=== PATIENT | female | born 1985 | race Caucasian/White ===

== ENCOUNTER 2017-01-02 11:01 | Observation (INO) | payer MEDICAID ==
[~2017-01-02] VITALS: Ht 160 cm; Wt 67.0 kg
--- NOTE | ~2017-01-02 | ER ---
PATIENT'S NAME: DENEEN ANGULO [facility] AGE: 31 Y [address] ROOM: [place] [address] LOCATION: [facility] ADMIT DATE: 01/02/2017 ER/Outpatient Report DISCHARGE DATE: FAMILY PHYSICIAN: PHYSICIAN, UNKNOWN ATTENDING PHYSICIAN: Margarette Mcknight CHIEF COMPLAINT: Illness. HISTORY OF PRESENT ILLNESS: The patient arrives by ambulance. She states that she is approximately 30 weeks' and she is homeless. She has been wandering around [place] for the last several days and has not been sleeping well or with significant penitentiary. She only recently got on food stamps. She states that she has been spotting every day for the last few weeks. She has not been seen by a provider for since she was in group home in the middle of September. At that time, she stated that everything looked well with her . She states that she still does feel baby move, but not that much. She states that the reason she called the ambulance today is that she was so tired, she just could not walk anymore and her legs were tingly. She denies any other acute issues at this time. She denies any drug use, but states that she is exposed to significant amounts of drugs at the location where she spends most of her time. PAST MEDICAL HISTORY: Documented on the record and reviewed by me. SOCIAL HISTORY: Documented on the record and reviewed by me. MEDICATIONS: Documented on the record and reviewed by me. ALLERGIES: DOCUMENTED ON THE RECORD AND REVIEWED BY ME. REVIEW OF SYSTEMS: All systems were reviewed and negative except as noted in the HPI. PHYSICAL EXAMINATION: VITAL SIGNS: Blood pressure 113/75, pulse 93, respiratory rate 16, temperature 98, SpO2 is 98% on room air. Pain is 0/10. GENERAL: Age-appropriate female, disinterested in lying on the exam table, no apparent pain or distress. NEUROLOGIC: Awake and alert. GCS is 15. No focal deficits. No asymmetry. PATIENT'S NAME: DENEEN ANGULO [facility] AGE: 31 Y [address] ROOM: [place] [address] LOCATION: [facility] ADMIT DATE: 01/02/2017 ER/Outpatient Report DISCHARGE DATE: FAMILY PHYSICIAN: PHYSICIAN, UNKNOWN ATTENDING PHYSICIAN: Margarette Mcknight The patient was able to rise to a standing position from a recumbent position rapidly with no apparent difficulties. She is able to ambulate without difficulty. She had no focal or sensory deficits. No focal weakness appreciable on exam. No facial asymmetry. HEENT: Normocephalic, atraumatic. Eyes are tired, minimally sunken. Oropharynx is clear and moist. No exudates appreciated. NECK: Supple. Trachea is midline. CHEST: Heart is regular rate and rhythm. No murmurs. LUNGS: Clear to auscultation bilateral. ABDOMEN: Gravid, nontender. No rebound or guarding. BACK: Normal to inspection. EXTREMITIES: Warm and well perfused. No appreciable edema. SKIN: Appears to be clean, dry, and intact. LABORATORY DATA AND X-RAYS: Deferred. IMPRESSION: Fatigue in the setting of late second to early third trimester . EMERGENCY DEPARTMENT COURSE: The patient was seen and rapidly determined to have no significant emergency medical condition requiring further stabilization in the emergency department. No evidence of stroke or hemodynamic instability. I discussed the case with the OB charge nurse and we have deferred her evaluation to be completed upstairs by the TAPE FASTENER MACHINE OPERATOR team to provide the most appropriate care for her baby. This is the patient's third . Her only child is 5 years old and she had elective at the age of 17 as she reports. MD OSVALDO DESHPANDE/guerrero /[id number] d: 01/03/17 0334 t: 01/12/17 0722, OUTPATIENT REPORT
--- NOTE | ~2017-01-02 | DS ---
PATIENT'S NAME: DENEEN ANGULO [facility] AGE: 31 Y [address] ROOM: [id number] [place], [place] [address] LOCATION: BS ADMIT DATE: 01/02/2017 Discharge Summary DISCHARGE DATE: 01/03/2017 FAMILY PHYSICIAN: Physician, Unknown ATTENDING PHYSICIAN: Margarette Mcknight FINAL DIAGNOSES: 1. Intrauterine at 26 weeks 3 days. 2. No care. 3. Dehydration. 4. Urinary tract infection. 5. Methamphetamine, THC, and opioid use. REASON FOR ADMISSION: This patient is a 31-year-old female, 3, para 1- 0-1-1, who is 26 weeks 2 days by estimated date of confinement, who is homeless and presents with vague symptoms of just overall not feeling well and a one-time episode of vaginal spotting. HOSPITAL COURSE: The patient was admitted. She was given IV hydration. She had been on the streets for a few weeks. She was clearly dehydrated upon arrival. The baby looked good on monitoring based on gestational age. Ultrasound confirmed gestational age close to her due date with a marrero at 1042 g. Full anatomy screen was not performed as it was just a bedside ultrasound. Her urinary drug screen was positive for opioids, methamphetamines, and THC. She denied drug use and was very angry about the positive drug screen. Care Management saw her while they were here. We did give her IV hydration, fed her, watched her overnight, did not notice any bleeding at all, and status was reassuring. She had some bacteria in her urine, but it was not a clean catch, but since she was symptomatic and probably will not follow up well, I am going to send her home with an antibiotic. We found her a room at the retirement, and we strongly recommend that she establishes care, and then she can see us back in the office, and we will do a full anatomy screen and diabetes screening. She did have her limited labs done while she was here. She also needs to see a dentist because she has some bad dentition issues. DISCHARGE MEDICATIONS: Please see her list. DISCHARGE INSTRUCTIONS: Again, the patient is strongly recommended to seek care, see a dentist, and hopefully, we can get her to come to the office so that we can take care of her prior to delivery. Care Management is involved, and CPS has been notified. PATIENT'S NAME: DENEEN ANGULO [facility] AGE: 31 Y [address] ROOM: [place] [address] LOCATION: [facility] ADMIT DATE: 01/02/2017 Discharge Summary DISCHARGE DATE: 01/03/2017 FAMILY PHYSICIAN: Physician, Unknown ATTENDING PHYSICIAN: Margarette Mcknight MD KENAN TOWNSEND/guerrero /[id number] d: 01/04/17 1128 t: 01/08/17 1103, DISCHARGE SUMMARY
[2017-01-02 12:02] LABS: BILIRUBIN URINE NEGATIVE (NEGATIVE); BLOOD URINE NEGATIVE /UL (NEGATIVE); COLOR URINE YELLOW (YELLOW); GLUCOSE URINE NEGATIVE (NEGATIVE); KETONE URINE NEGATIVE (NEGATIVE); LEUKOCYTES URINE 100 /UL (NEGATIVE); NITRITE URINE NEGATIVE (NEGATIVE); PROTEIN URINE 15 mg/dL (NEGATIVE); SPEC GRAVITY URINE 1.025 (1.003-1.035); TURBIDITY URINE 1+ (CLEAR); UROBILINOGEN URINE NORMAL (NORMAL)
[2017-01-02 12:09] LABS: RBC URINE 0-2 #/HPF (NEGATIVE)
[2017-01-02 12:10] LABS: BACTERIA URINE MANY (NEGATIVE); MUCUS URINE 3+ (NEGATIVE)
[2017-01-02] MEDS ORDERED: PRENATAL 1+1)(P1 TAB PO (12:21)
[2017-01-02] MEDS ORDERED: TUMS200 MG PO (12:21)
[2017-01-02 13:30] LABS: AMPHETAMINE POSITIVE (NEGATIVE); BARBITURATE NEGATIVE (NEGATIVE); COCAINE NEGATIVE (NEGATIVE)
[2017-01-02 13:31] LABS: OPIATES POSITIVE (NEGATIVE)
[2017-01-02] MEDS ORDERED: ZANTAC (NON-FO150 MG PO (14:59)
--- NOTE | 2017-01-02 16:43 | NUR ---
Received a consult and a phone call on this patient. She arrived at the hospital for spotting. I arrived on the floor at [address] Ballesteros and charge nurse Nafisa. Patient is homeless and has been living on the streets of [place] for the past two nights for sure. Dr. Ballesteros asked me to assist with resources for her. She is requiring fluids and monitoring of the spotting so will be here overnight. It was also noted that patient had a positive urine drug screen with amphetamines, opiods, and THC. Dr. Mcknight went into the room to speak to patient regarding the plan of care and the positive drug screen. Dr. Ballesteros came out of the room and states patient is very upset and mad, using profanity at her regarding the drug screen. I then went into the room and spent approximately 40mins with patient. She tells me that she had been in correction in [facility] from July to September for drug charges (distribution). She states that since being released from correction she has been homeless, staying a multiple different peoples homes for short periods of time. Most recently she was staying in a house/garage coverted to apartments with the address of [birth year], but that is all she will give for address. She has been there for approximately one month until 2-3 nights ago when she left. She states there were 3 other people living in the home with her and they were all using drugs so this must be why she had a positive drug screen. She states she has not used any drugs since being released from correction in September. She has a 5 year old son Jimi who is currently a state peralta and in foster care in [place]. Jimi's father is Ciro and he is also the father of this baby she is carrying. Patient has not been able to see Jmii since she was in correction because she has refused to put the drug patch on. She states her refusal is because the state wants the person to come to her home and apply the drug patch and patient says she has refused because she does not have a home. She says they state will not allow her to meet at their offices for the drug patch to be applied. 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 She also reports that she has been diagnosed with manic depression, bipolar, and anxiety. She was diagnosed with these when she was at [facility] inpatient treatment facility in [place]. The energy infrastructure engineer ordered for her to have a mental health evaluation and a drug and alcohol evaluation which according to patient has not been done yet. She states that she has talked with the regional manager at [facility] here in [place] and all she needs is a copy of her certificate in order to fill out an application for [email or web address] benefits, which I am not certain she will qualify for. Note left on chart regarding this. She has a long standing history of extensive drug use (heroine, meth, opiods, benzo's). I asked her if she is currently on any medications that could have triggered the positive drug screen. She states that the only way she could have tested positive is because they were using drugs in the home she was staying at until two nights ago. She states only meds she should be on, but she isn't taking is vitamins. I offered to contact [facility] to secure a bed for her there and also to make a referral to [facility] [address] [facility] to see if they can offer any services to her. She signed a release of information for me so I can call [place] [facility] [address] and make a referral. I called them and spoke to Demetrius with the adult assistance program. He states they may be able to offer some supports regarding her mental health needs, but they cannot assist with housing. I did let him know that I have a bed for her at [facility] when she discharges from here tomorrow. He states the patient will been to call the technical training coordinator Marie Jacobs with [facility] [address] at [phone] to inquire about services. I will provide this information to the patient. I spoke to my director Valeria Mendenhall and I will plan on contacting [facility] regarding the positive drug screen tomorrow because I do not want to see her leave here bhumika ELLIS as I am worried about her and the well being of the baby. Will continue to follow and offer supports.
--- NOTE | 2017-01-03 05:38 | NUR ---
Runs low BP, last , [facility], CM consult today and waiting to go to [facility], positive drug screen
[2017-01-03] MEDS ORDERED: MACROBID100 MG PO (10:56)
--- NOTE | 2017-01-03 14:46 | NUR ---
Met with Dr. Mcknight this morning and patient is cleared to discharge today. I called [facility] here in [place] and confirmed they still have a bed for patient which they do. I provided patient with a change of clothes, contact information for Marie Jacobs Fabric Worker with [facility] ([phone]) to contact her for assistance, and a taxi voucher to [place]. CPS call placed at time of discharge. No other discharge needs.
== END 2017-01-03 14:00 | disposition disaster alternative care site (69) ==
LOC: EDBD 11:01 → GMED 11:01 → GOBS 11:25
PROVIDERS: ADMIT Obstetrics & Gynecology
DX: O26.812 Pregnancy related exhaustion and fatigue, second trimester (principal); O23.32 Infections of other parts of urinary tract in pregnancy, second trimester; E86.0 Dehydration; Z3A.26 26 weeks gestation of pregnancy; O99.322 Drug use complicating pregnancy, second trimester; F11.90 Opioid use, unspecified, uncomplicated; Z79.899 Other long term (current) drug therapy; Z91.09 Other allergy status, other than to drugs and biological substances
CPT/HCPCS: G0378; G0463; J2001; J2791; J7120

== ENCOUNTER → 2017-01-02 | Outpatient (CLI) | payer MEDICAID ==
[~2017-01-02] MED LIST: MACROBID100 MG PO; PRENATAL 1+1)(P1 TAB PO; TUMS200 MG PO; ZANTAC (NON-FO150 MG PO
== END | disposition disaster alternative care site (69) ==
LOC: GAMB 10:46
DX: O99.89 Other specified diseases and conditions complicating pregnancy, childbirth and the puerperium (principal); O26.852 Spotting complicating pregnancy, second trimester; O99.322 Drug use complicating pregnancy, second trimester; F13.180 Sedative, hypnotic or anxiolytic abuse with sedative, hypnotic or anxiolytic-induced anxiety disorder; E86.0 Dehydration; R53.1 Weakness
CPT/HCPCS: A0425; A0429

== ENCOUNTER 2017-01-14 12:50 | Emergency (ER) | payer MEDICAID ==
--- NOTE | ~2017-01-14 | ER ---
PATIENT'S NAME: DENEEN ANGULO [facility] AGE: 31 Y [address] ROOM: [place] [address] LOCATION: ED ADMIT DATE: 01/14/2017 ER/Outpatient Report DISCHARGE DATE: 01/14/2017 FAMILY PHYSICIAN: PHYSICIAN, NO ATTENDING PHYSICIAN: Polo Roldan TIME OF ARRIVAL: 1255 hours. TIME OF EXAM: 1257 hours. CHIEF COMPLAINT: Cyst of the left armpit. HISTORY OF PRESENT ILLNESS: The patient states that she has had the sores in her left armpit area for the past week. States she had something similar to this 3 months ago. She was seen [place] [facility] at that time, diagnosed and given antibiotics and which helped to clear them up. She states she has had chills off and on. They are tender to touch. There has been no drainage from them. She has not had any other symptoms. No numbness or tingling of her hand, has good use of her arm, just tender to move her arm. ALLERGIES: SHE HAS NO KNOWN ALLERGIES. CURRENT MEDICATIONS: No current medications. PAST MEDICAL HISTORY: She reports she is 7 months . She has not been receiving any care. She is scheduled to see Dr. Edwar Blanton on January 25. PAST SURGICAL HISTORY: Appendectomy, tendon and nerve repair of the left thumb. SOCIAL HISTORY: She does smoke half pack per day. When asked about drug use, she states that she has not used anything for last 2 weeks. However, two weeks ago, she was positive for methamphetamines and opiates. Denies use of alcohol. States she has recently been in correction. REVIEW OF SYSTEMS: All negative other than those mentioned in the HPI. PATIENT'S NAME: DENEEN ANGULO [facility] AGE: 31 Y [address] ROOM: [place] [address] LOCATION: [facility] ADMIT DATE: 01/14/2017 ER/Outpatient Report DISCHARGE DATE: 01/14/2017 FAMILY PHYSICIAN: PHYSICIAN, JAN ATTENDING PHYSICIAN: Polo Roldan PHYSICAL EXAMINATION: VITAL SIGNS: She weighed 70.3 kg. Blood pressure is 119/76, pulse is 76, respirations 17, temp of 98.4 tympanic, and O2 saturation was 99% on room air. GENERAL: She is awake, alert, and oriented x4. SKIN: [place], warm, and dry. RESPIRATIONS: Even and nonlabored. Lungs sounds are clear throughout. HEART: Regular rate and rhythm. EXTREMITIES: The patient has two cysts under the left armpit area. They are round, reddened, and slightly firm. No drainage noted. No head to the area noted. IMPRESSION: Infected skin lesion. PLAN: Wash the area at least twice a day with soap and water. Tylenol as needed for discomfort. Prescription was written for cephalexin. She is to follow up with primary provider next 2 or 3 days, if symptoms are worse and keep her scheduled appointment on the , she verbalized understanding. LEONARD NOVOA APRN FOR MD NACHO DESHPANDE/guerrero /[id number] d: 01/14/171916 t: 01/29/17 0950, OUTPATIENT REPORT
== END 2017-01-14 13:10 | disposition disaster alternative care site (69) ==
LOC: GMED 12:50
DX: O99.711 Diseases of the skin and subcutaneous tissue complicating pregnancy, first trimester (principal); O99.331 Smoking (tobacco) complicating pregnancy, first trimester; L08.89 Other specified local infections of the skin and subcutaneous tissue; F17.210 Nicotine dependence, cigarettes, uncomplicated; Z3A.01 Less than 8 weeks gestation of pregnancy; Z90.49 Acquired absence of other specified parts of digestive tract; Z98.890 Other specified postprocedural states

== ENCOUNTER 2017-01-26 19:42 | Emergency (ER) | payer MEDICAID ==
--- NOTE | ~2017-01-26 | ER ---
PATIENT'S NAME: DENEEN ANGULO [facility] AGE: 31 Y [address] ROOM: [place] [address] LOCATION: [facility] ADMIT DATE: 01/26/2017 ER/Outpatient Report DISCHARGE DATE: 01/26/2017 FAMILY PHYSICIAN: PHYSICIAN, NO ATTENDING PHYSICIAN: Cleveland Tang Time of Arrival: 1942 hours. Time of Evaluation: 1955 hours. CHIEF COMPLAINT: Infected cyst under left arm. HISTORY OF PRESENT ILLNESS: This is a 31-year-old female, who presents to the ER, who states that she was seen here in the emergency room because she has had some infected cyst under her left armpit. She was treated with cephalexin, and she states she has one more dose of that. She feels like it has been getting better, but she just wanted to get it rechecked. She has had no fever or chills. No other problems as far as nausea, vomiting, or diarrhea. She states the antibiotic has given her yeast infection that she would like for us to give her medication for as well. She denies any other problems at this time. ALLERGIES: NO KNOWN ALLERGIES. MEDICATIONS: vitamins. PAST MEDICAL HISTORY: Negative. PAST SURGICAL HISTORY: Appendectomy, left thumb surgery. EXEC. CREATIVE DIRECTOR HISTORY: She is currently 30 weeks' . SOCIAL HISTORY: She smokes half pack a day for last 15 years. She did methamphetamines on January 01. REVIEW OF SYSTEMS: All systems reviewed and were negative with the exception of those discussed in the HPI. PATIENT'S NAME: DENEEN ANGULO [facility] AGE: 31 Y [address] ROOM: [place] [address] LOCATION: [facility] ADMIT DATE: 01/26/2017 ER/Outpatient Report DISCHARGE DATE: 01/26/2017 FAMILY PHYSICIAN: PHYSICIAN, NO ATTENDING PHYSICIAN: Cleveland Tang PHYSICAL EXAMINATION: VITAL SIGNS: Height 5 feet 3 inches stated, weight 70.3 kg taken, blood pressure is 139/67, pulse 104, respirations 20, temperature 97.4 degrees tympanically, and saturations 96% on room air. Kendy Coma Score is 15. GENERAL: Alert, calm, well-developed, 31-year-old, in no acute distress. LUNGS: Clear to auscultation bilaterally. HEART: Slightly tachycardic. Normal rhythm. EXTREMITIES: No clubbing or cyanosis. She has full range of motion of all limbs. SKIN: She has some slight erythema noted to her left armpit. There is no induration. There are no pustules. There is no active draining. LABORATORY DATA AND X-RAYS: None were done. IMPRESSION: Improved infected skin lesion under left armpit. ASSESSMENT AND PLAN: I advised the patient to finish out her cephalexin. She may use warm compresses to the skin. Advised her to use Monistat for her vaginal yeast infection, and she needs to follow [facility] with [facility] if she does not improve. The patient understands and agrees with care. JENI BYNUM PA-C FOR MD EZEKIEL COLON/guerrero /[id number] P d: 01/26/170 t: 02/06/17 1817, OUTPATIENT REPORT
== END 2017-01-26 20:13 | disposition disaster alternative care site (69) ==
LOC: GMED 19:42
DX: O99.713 Diseases of the skin and subcutaneous tissue complicating pregnancy, third trimester (principal); O99.333 Smoking (tobacco) complicating pregnancy, third trimester; L98.9 Disorder of the skin and subcutaneous tissue, unspecified; F17.200 Nicotine dependence, unspecified, uncomplicated; Z3A.30 30 weeks gestation of pregnancy; Z90.49 Acquired absence of other specified parts of digestive tract; Z98.890 Other specified postprocedural states; Z79.2 Long term (current) use of antibiotics

== ENCOUNTER → 2017-02-13 | Outpatient (CLI) | payer MEDICAID ==
[2017-02-13 16:24] LABS: BASOPHIL # 0.1 K/uL (0.0-0.2); BASOPHIL % 0.4 %; EOSINOPHIL # 0.3 K/uL (0.0-0.5); EOSINOPHIL % 2.1 %; HEMATOCRIT 36.4 % (33.0-46.0); HEMOGLOBIN 12.3 g/dL (11.0-15.0); IMMATURE GRANULOCYTE # 0.1 K/uL (0.0-0.3); IMMATURE GRANULOCYTE % 0.7 %; LYMPHOCYTE # 2.1 K/uL (0.8-4.0); MCH 33.7 pg (27.0-34.0); MCHC 33.8 gm/dL (32.0-36.5); MCV 99.7 fl (83.0-98.0); MONOCYTE # 0.7 K/uL (0.0-1.0); MONOCYTE % 4.5 %; MPV 9.8 fl (9.4-12.4); NEUTROPHIL # (ANC) 12.6 K/uL (1.8-7.8); NEUTROPHIL % 79.3 %; NRBC % 0 /100WBC (0-0.00); PLATELET COUNT 278 K/uL (150-450); RBC 3.65 M/uL (3.50-5.00); RDW-CV 13.5 % (11.9-14.6); WBC 15.9 K/uL (4.0-11.0)
[2017-02-13 17:08] LABS: AMPHETAMINE NEGATIVE (NEGATIVE); BARBITURATE NEGATIVE (NEGATIVE); COCAINE NEGATIVE (NEGATIVE); OPIATES NEGATIVE (NEGATIVE)
== END ==
LOC: LKCL 16:06
PROVIDERS: Family Medicine
DX: Z34.83 Encounter for supervision of other normal pregnancy, third trimester (principal)
CPT/HCPCS: G0145

== ENCOUNTER 2017-02-28 21:03 | Emergency (ER) | payer MEDICAID ==
--- NOTE | ~2017-02-28 | ER ---
PATIENT'S NAME: DENEEN ANGULO [facility] AGE: 31 Y [address] ROOM: [place] [id number] LOCATION: [facility] ADMIT DATE: 02/28/2017 ER/Outpatient Report DISCHARGE DATE: 02/28/2017 FAMILY PHYSICIAN: Edwar Blanton MD ATTENDING PHYSICIAN: Gokul Segundo Time of Arrival: 2103 hours. Time of Evaluation: 2110 hours. CHIEF COMPLAINT: Dental pain. HISTORY OF PRESENT ILLNESS: This is a 31-year-old female, who presents to the ER. She states she has had dental pain for approximately 6 months. She states that she has not been able to see her dentist for it because there are no dentists in [facility] that are excepting any new medicaid patient. She has not been running any fevers at home, and she has been seeing Dr. Edwar Blanton for her visits, and she has been taking Tylenol and ibuprofen for her pain. She states that she is approximately 33 weeks' , and she states that Dr. Edwar Blanton knows that she has been taking ibuprofen. She states that she recently noticed some swelling in her left jaw area. She denies any other problems at this time. ALLERGIES: NO KNOWN ALLERGIES. MEDICATIONS: 1. Tylenol. 2. Ibuprofen. PAST MEDICAL HISTORY: Appendectomy, tendon repair. She is currently 33 weeks' . SOCIAL HISTORY: She smokes half pack a day. Denies any drug or alcohol use. REVIEW OF SYSTEMS: All systems were reviewed and were negative with the exception of those discussed in the HPI. PHYSICAL EXAMINATION: VITAL SIGNS: Height 5 feet 4 inches stated, weight 72.7 kg taken, blood pressure is 106/53, pulse 100, respirations 16, temperature 97.8 degrees orally, saturations 98% on room air. Kendy Coma Score is 15. GENERAL: PATIENT'S NAME: DENEEN ANGULO [facility] AGE: 31 Y [address] ROOM: [place], [place] [address] LOCATION: [facility] ADMIT DATE: 02/28/2017 ER/Outpatient Report DISCHARGE DATE: 02/28/2017 FAMILY PHYSICIAN: Edwar Blanton MD ATTENDING PHYSICIAN: Gokul Segundo Alert, calm, well-developed female, in no acute distress. HEENT: Head: Normocephalic. Eyes: Pupils are equal and reactive to light. Ears: TMs display good effects bilaterally. Nose: Turbinates pink with no drainage. Throat: No exudates or erythema. She does have widespread dental decay noted to her upper and lower teeth. She does have some slight facial swelling noted to the left jawline. She has no fluctuance noted to the gumline with palpation with a tongue blade. NECK: Supple. No lymphadenopathy. LUNGS: Clear to auscultation bilaterally. HEART: Regular rate and rhythm. EXTREMITIES: No clubbing or cyanosis. She has full range of motion of all limbs. LABORATORY DATA AND X-RAYS: Labs, none were done. X-rays, none were done. IMPRESSION: Left lower dental pain. ASSESSMENT AND PLAN: We will dismiss her to home with a prescription for amoxicillin to use as directed. I advised against using ibuprofen for her pain and advised to seed cone picker some Anbesol or continue using Tylenol for her discomfort. We will dismiss her with free or reduced dental clinics here in the [facility]. She needs to see a dentist as soon as possible. The patient understands and agrees with care. JENI BYNUM PA-C FOR DO EZEKIEL CLEMENT/guerrero /[id number] d: t: 03/01/17 0118, OUTPATIENT REPORT
== END 2017-02-28 21:24 | disposition disaster alternative care site (69) ==
LOC: GMED 21:03
DX: O99.89 Other specified diseases and conditions complicating pregnancy, childbirth and the puerperium (principal); O99.333 Smoking (tobacco) complicating pregnancy, third trimester; K08.89 Other specified disorders of teeth and supporting structures; Z3A.33 33 weeks gestation of pregnancy; Z90.49 Acquired absence of other specified parts of digestive tract